=== PATIENT | female | born 1965 | race African-American/Black ===

== ENCOUNTER 2018-07-31 17:21 | Inpatient (IN) | payer OTHER ==
[2018-07-31 19:30] VITALS: BMI 20.6
[2018-07-31] MEDS ORDERED: ALBUTEROL SO4 8 GM HFA INHALER IH SCH (21:00)
--- NOTE | 2018-07-31 21:04 | HP ---
CIWA Score - Admission Criteria [facility]ASAS Guidelines: Admission for Medically Managed Detox: Requires at least one of the followin. CIWA greater than 12 2. Seizures within the past 24 hours 3. Delirium tremens within the past 24 hours 4. Hallucinations within the past 24 hours 5. Acute intervention needed for co occurring medical disorder 6. Acute intervention needed for co occurring psychiatric disorder 7. Severe withdrawal that cannot be handled at a lower level of care (continued vomiting, continued diarrhea, abnormal vital signs) requiring intravenous medication and/or fluids 8. Admission ROS [facility] - HPI Chief Complaint: crack /cocaine rehab Allergies/Adverse Reactions: Allergies Allergy/AdvReac Type Severity Reaction Status Date / Time Fish Containing Products Allergy Intermediate Hives Verified 07/31/18 19:25 History of Present Illness: 53 yo female with hx of nicotine, and crack cocaine dependence is here for rehabilitation, self referred. Denies any legal troubles at this time. PMHX:Asthma, hypothyroid, GERD, seizure (last episode 7-8 months reports on depakote) Psych: reports bipolar and was on Haldol, risperdal for auditory hallucinations , reports not currently taking meds. Denies SI/ HI or hx of suicide attempt longest period of sobriety four years, reports relapse 2 years ago, last rehab completed at [facility] three years ago Exam Limitations: No Limitations - Ebola screening Have you traveled outside of the country in the last 21 days: No (N) Have you had contact with anyone from an Ebola affected area: No Do you have a fever: No - Review of Systems Constitutional: No Symptoms Reported EENT: reports: No Symptoms Reported Respiratory: reports: No Symptoms reported Cardiac: reports: No Symptoms Reported GI: reports: No Symptoms Reported : reports: No Symptoms Reported Musculoskeletal: reports: No Symptoms Reported Integumentary: reports: No Symptoms Reported Neuro: reports: No Symptoms reported Endocrine: reports: No Symptoms Reported Hematology: reports: No Symptoms Reported Psychiatric: reports: Mood/Affect Appropiate, Orientated x3 Other Systems: Reviewed and Negative Patient History - Patient Medical History Hx Anemia: No Hx Asthma: Yes Hx Chronic Obstructive Pulmonary Disease (COPD): No Hx Cancer: No Hx Cardiac Disorders: No Hx Congestive Heart Failure: No Hx Hypertension: No Hx Hypercholesterolemia: No Hx Pacemaker: No HX Cerebrovascular Accident: No Hx Seizures: No Hx Dementia: No Hx Diabetes: No Hx Gastrointestinal Disorders: Yes Hx Liver Disease: No Hx Genitourinary Disorders: No Hx Sexually Transmitted Disorders: No Hx Renal Disease (ESRD): No Hx Thyroid Disease: Yes ( s/o thyroid surgery, rx thyroxine = has not been taking since 08/17) Hx Human Immunodeficiency Virus (HIV): No Hx Hepatitis C: No Hx Depression: Yes Hx Suicide Attempt: No Hx Bipolar Disorder: Yes (medicated : Depacote, sequel, rispedal ) Hx Schizophrenia: No - Patient Surgical History Past Surgical History: Yes Hx Neurologic Surgery: No Hx Cataract Extraction: No Hx Cardiac Surgery: No Hx Lung Surgery: No Hx Breast Surgery: No Hx Breast Biopsy: No Hx Abdominal Surgery: No Hx Appendectomy: No Hx Cholecystectomy: No Hx Genitourinary Surgery: No Hx Section: Yes (X2) Hx Orthopedic Surgery: No Hx Hysterectomy: Yes Other Surgical History: s/p thyroid surgery, HYSTERECTOMY Anesthesia Reaction: No - PPD History Previous Implant?: No Documented Results: Negative w/o proof PPD to be Administered?: Yes - Reproductive History Last Menstrual Period: 03/16/05 (nine years ago ) - Smoking Cessation Smoking history: Current every day smoker Have you smoked in the past 12 months: Yes Aproximately how many cigarettes per day: 20 Hx Chewing Tobacco Use: No Initiated information on smoking cessation: Yes 'Breaking Loose' booklet given: 07/31/18 - Substance & Tx. History Hx Alcohol Use: No Hx Substance Use: Yes Substance Use Type: Cocaine Hx Substance Use Treatment: Yes (Last rehab [facility] three years ago ) - Substances abused Cocaine Substance route: Smoking Frequency: Daily Amount used: 4-5 BAGS Age of first use: 27 Date of last use: 07/30/18 Crack Substance route: Smoking Frequency: Daily Amount used: 2-3 BAGS Age of first use: 27 Date of last use: 07/30/18 Family Disease History - Family Disease History Family Disease History: Diabetes: Mother (alcohol dependence ), Other: Father ( alcohol dependence ), Mother Admission Physical Exam S - Vital Signs Vital Signs: Vital Signs - 24 hr 07/31/18 19:24 Temperature 98.2 F Pulse Rate 81 Respiratory 18 Rate Blood Pressure 147/79 - Physical General Appearance: Yes: Appropriately Dressed, Thin, Anxious HEENTM: Yes: EOMI, Hearing grossly Normal, Normal ENT Inspection, Normocephalic , Normal Voice, DOROTHY, Pharynx Normal, Tm's normal Respiratory: Yes: Chest Non-Tender, Lungs Clear, Normal Breath Sounds, No Respiratory Distress, No Accessory Muscle Use Neck: Yes: Within Normal Limits Breast: Yes: Breast Exam Deferred Cardiology: Yes: Regular Rhythm, Regular Rate Abdominal: Yes: Normal Bowel Sounds, Non Tender, Flat, Soft Genitourinary: Yes: Within Normal Limits Back: Yes: Normal Inspection Musculoskeletal: Yes: full range of Motion, Gait Steady, Pelvis Stable Extremities: Yes: Normal Capillary Refill, Normal Inspection, Normal Range of Motion, Non-Tender Neurological: Yes: hot stick man II-XII NML intact, Fully Oriented, Alert, Motor Strength 5/5, Depressed Affect Integumentary: Yes: Normal Color, Dry, Warm Lymphatic: Yes: Within Normal Limits - Diagnostic (1) Hx of seizure disorder Current Visit: Yes Status: Acute (2) Nicotine dependence Current Visit: Yes Status: Acute Qualifiers: Nicotine product type: cigarettes (3) Asthma Current Visit: Yes Status: Chronic Qualifiers: Asthma severity: mild (4) Cocaine dependence Current Visit: Yes Status: Chronic Qualifiers: Substance use status: uncomplicated Qualified Code(s): F14.20 - Cocaine dependence, uncomplicated (5) Hypothyroid Current Visit: Yes Status: Chronic Qualifiers: Hypothyroidism type: unspecified Qualified Code(s): E03.9 - Hypothyroidism , unspecified Breathalyzer - Breathalyzer Breathalyzer: 0 POC Urine test - Test device test lot number: [id number] Expiration date: 01/02/20 - Result Urine Test Results: Negative - NO line present Urine Drug Screen - Test Device Lot number: [id number] Expiration date: 03/03/20 - Control Is test valid?: Yes - Results Drug screen NEGATIVE: No Urine drug screen results: JERALD-Cocaine Inpatient Rehab Admission - Rehab Decision to Admit Inpatient rehab admission?: Yes - Initial Determination Are CD services needed?: Yes Free of communicable disease: Yes Not in need of hospitalization: Yes - Rehab Admission Criteria Previous failed treatment: Yes Poor recovery environment: Yes Comorbidities: Yes Lacks judgement: Yes Patient is meeting Inpatient Rehab admission criteria:: Yes
[2018-07-31] MEDS ORDERED: IBUPROFEN 400 MG TABLET (FP) PO PRN (21:07)
[2018-07-31] MEDS ORDERED: LOPERAMIDE HCL 2 MG CAPSULE PO PRN (21:07)
[2018-07-31] MEDS ORDERED: MENTHOL/PHENOL 1 EACH UD MM PRN (21:07)
[2018-07-31] MEDS ORDERED: MAGNESIUM HYDROX 2400MG/30ML ORAL SUSPENSION 30 ML CUP PO PRN (21:07)
[2018-07-31] MEDS ORDERED: guaiFENesin 200 MG/10 ML 10 ML UNIT-DOSE CUPS PO PRN (21:07)
[2018-07-31] MEDS ORDERED: MAG HYDROX/AL HYDROX/SIMETH 30 ML UNIT-DOSE CUP PO PRN (21:07)
[2018-07-31] MEDS ORDERED: ACETAMINOPHEN 325 MG TABLET (FP) PO PRN (21:07)
[2018-07-31] MEDS ORDERED: P-EPHED 60MG/TRIPROLIDI 2.5MG TABLET PO PRN (21:07)
[2018-07-31] MEDS ORDERED: MAGNESIUM CITRATE 300 ML BOTTLE PO PRN (21:07)
[2018-07-31] MEDS ORDERED: hydrOXYzine PAMOATE 25 MG CAPSULE (FP) PO PRN (21:07)
[2018-07-31] MEDS ORDERED: NICOTINE POLACRILEX 2 MG GUM BC PRN (21:07)
[2018-07-31] MEDS ORDERED: BUDESONIDE/FORMETEROL FUMARATE 160/4.5 mcg INHALER IH SCH (22:00)
[2018-07-31] MEDS: DIVALPROEX SODIUM 500 MG TABLET E.C. PO SCH (23:07)
[2018-07-31] MEDS: THIAMINE HCL 100 MG TABLET (FP) PO SCH (23:07)
[2018-08-01] MEDS ORDERED: ALBUTEROL SO4 8 GM HFA INHALER IH PRN (00:55)
[2018-08-01 02:24] LABS: EPI CELLS 6.8 /HPF (0-5/HPF); PH,URINE 6.5 (5.0-8.0); URINE APPEARANCE CLOUDY; URINE BACTERIA 3060.6 /hpf (NEGATIVE); URINE BILIRUBIN NEGATIVE (NEGATIVE); URINE CASTS 49 /lpf (0-8); URINE COLOR YELLOW; URINE GLUCOSE (UA) NEGATIVE (NEGATIVE); URINE KETONE TRACE (NEGATIVE); URINE LEUK ESTERASE 2+ (NEGATIVE); URINE NITRITE POSITIVE (NEGATIVE); URINE PROTEIN NEGATIVE (NEGATIVE); URINE RBC 1 /hpf (0-4); URINE WBC 53 /hpf (0-5)
[2018-08-01] MEDS: LEVOTHYROXINE NA 25 MCG TABLET (FP) PO SCH (07:50)
[2018-08-01] MEDS ORDERED: PT OWN MED DRAWER 7, Y5N ONE ×2 (08:30→20:09)
[2018-08-01] MEDS: DIVALPROEX SODIUM 500 MG TABLET E.C. PO SCH ×2 (10:08→22:51)
[2018-08-01] MEDS: BUDESONIDE/FORMETEROL FUMARATE 160/4.5 mcg INHALER IH SCH ×2 (10:09→22:52)
[2018-08-01] MEDS: NICOTINE 14 MG/24 HOURS TOPICAL PATCH TD SCH (10:09)
[2018-08-01] MEDS: PRENATAL VITAMINS W/ FOLIC ACID TABLET (FP) PO SCH (10:09)
[2018-08-01 11:37] LABS: HEMATOCRIT 36.4 % (32.4-45.2); HEMOGLOBIN 11.8 GM/dL (10.7-15.3); MCH 28.6 pg (25.7-33.7); MCHC 32.4 g/dl (32.0-36.0); MEAN CELL VOLUME 88.2 fl (80-96); MEAN PLT VOLUME 9.3 fl (7.5-11.1); PLATELET COUNT 379 K/MM3 (134-434); RBC 4.12 M/mm3 (3.60-5.2); RDW 15.8 % (11.6-15.6); WHITE BLOOD COUNT 7.6 K/mm3 (4.0-10.0)
[2018-08-01 11:49] LABS: ALBUMIN 3.3 g/dl (3.4-5.0); ALK PHOS 116 U/L (45-117); ANION GAP 9 MMOL/L (8-16); BILIRUBIN,TOTAL 0.2 mg/dL (0.2-1); BLOOD UREA NITROGEN 10 mg/dL (7-18); CALCIUM 9.1 mg/dL (8.5-10.1); CHLORIDE 104 mmol/L (98-107); CO2 25 mmol/L (21-32); GLUCOSE,RANDOM 127 mg/dL (74-106); POTASSIUM 3.9 mmol/L (3.5-5.1); SGOT/AST 8 U/L (15-37); SGPT/ALT 13 U/L (13-61); SODIUM 138 mmol/L (136-145); TOT PROT 6.8 g/dl (6.4-8.2)
--- NOTE | 2018-08-01 14:38 | EKG ---
Test Reason : Blood Pressure : / mmHG Vent. Rate : 060 BPM Atrial Rate : 060 BPM P-R Int : 124 ms QRS Dur : 074 ms QT Int : 420 ms P-R-T Axes : 066 064 055 degrees QTc Int : 420 ms NORMAL SINUS RHYTHM LEFT ATRIAL ENLARGEMENT LEFT VENTRICULAR HYPERTROPHY NONSPECIFIC ST AND T WAVE ABNORMALITY ABNORMAL ECG NO PREVIOUS ECGS AVAILABLE Confirmed by MD FARZAD, EVARISTO ([id number]) on 08/01/2018 2:38:40 PM Referred By: Confirmed By:EVARISTO PANDA MD
[2018-08-01] MEDS: THIAMINE HCL 100 MG TABLET (FP) PO SCH (22:52)
[2018-08-01] MEDS: MELATONIN 5 MG TABLETS PO PRN (22:54)
[2018-08-02] MEDS: LEVOTHYROXINE NA 25 MCG TABLET (FP) PO SCH (06:32)
[2018-08-02] MEDS ORDERED: PT OWN MED DRAWER 7, Y5N ONE (08:21)
[2018-08-02] MEDS: PRENATAL VITAMINS W/ FOLIC ACID TABLET (FP) PO SCH (09:52)
[2018-08-02] MEDS: DIVALPROEX SODIUM 500 MG TABLET E.C. PO SCH ×2 (09:52→21:21)
[2018-08-02] MEDS: NICOTINE 14 MG/24 HOURS TOPICAL PATCH TD SCH (09:52)
[2018-08-02] MEDS: BUDESONIDE/FORMETEROL FUMARATE 160/4.5 mcg INHALER IH SCH ×2 (09:53→21:22)
[2018-08-02] MEDS: THIAMINE HCL 100 MG TABLET (FP) PO SCH (21:20)
[2018-08-03] MEDS: LEVOTHYROXINE NA 25 MCG TABLET (FP) PO SCH (06:42)
[2018-08-03] MEDS: BUDESONIDE/FORMETEROL FUMARATE 160/4.5 mcg INHALER IH SCH ×2 (09:37→21:31)
[2018-08-03] MEDS: DIVALPROEX SODIUM 500 MG TABLET E.C. PO SCH ×2 (09:37→21:30)
[2018-08-03] MEDS: PRENATAL VITAMINS W/ FOLIC ACID TABLET (FP) PO SCH (09:37)
[2018-08-03] MEDS: NICOTINE 14 MG/24 HOURS TOPICAL PATCH TD SCH (09:37)
[2018-08-03 11:39] LABS: EPI CELLS 16.1 /HPF (0-5/HPF); PH,URINE 5.5 (5.0-8.0); URINE APPEARANCE CLOUDY; URINE BACTERIA 5217.5 /hpf (NEGATIVE); URINE BILIRUBIN NEGATIVE (NEGATIVE); URINE CASTS 11 /lpf (0-8); URINE COLOR YELLOW; URINE GLUCOSE (UA) NEGATIVE (NEGATIVE); URINE KETONE TRACE (NEGATIVE); URINE LEUK ESTERASE 2+ (NEGATIVE); URINE NITRITE POSITIVE (NEGATIVE); URINE PROTEIN NEGATIVE (NEGATIVE); URINE RBC 3 /hpf (0-4); URINE UROBILINOGEN 0.2 mg/dL (0.2-1.0); URINE WBC 33 /hpf (0-5)
[2018-08-03] MEDS ORDERED: SULFAMETHOXAZOLE/TRIMETHOPRIM 800MG/160MG D.S. TABLET PO SCH (12:00)
[2018-08-03 12:14] LABS: URINE CRYSTALS CALCIUM OXALATE /hpf
[2018-08-03] MEDS: THIAMINE HCL 100 MG TABLET (FP) PO SCH (21:30)
[2018-08-03] MEDS: MELATONIN 5 MG TABLETS PO PRN (21:30)
[2018-08-04] MEDS: LEVOTHYROXINE NA 25 MCG TABLET (FP) PO SCH (06:26)
[2018-08-04 07:05] VITALS: BP 111/70; PULSE 77; TEMP 97.9
[2018-08-04] MEDS ORDERED: PT OWN MED DRAWER 7, Y5N ONE (08:43)
--- NOTE | 2018-08-04 08:50 | PN ---
[facility] Progress Note Note: PT DECLINED TO CONTINUE WITH REHAB FOR PERSONAL REASONS STATING "I DON'T WANNA STAY" WHEN ASKED. PT WAS SEEN THIS MORNING BY HER COUNSELOR, ADRIAN VARGAS. PT MET WITH HER COUNSELOR, ADRIAN VARGAS AND HAS BEEN REFERRED TO [facility] IOP FOR CD AFTERCARE. PT REPORTS SHE HAS A PCP AT [address] [place] [address] FOR MEDICAL MANAGEMENT. PT REPORTS SHE HAS HER MEDS AT HOME. RX FOR BACTRIM DS BELOW ELECTRONICALLY SENT TO [facility] TO COMPLETE EMPERICAL TREATMENT OF UTI. PT DID NOT PROVIDE UC SPECIMEN ORDERED ON . Home Medications Medication Instructions Recorded Divalproex [Depakote -] 500 mg PO BID #60 tablet.ec 10/22/13 Levothyroxine [Synthroid -] 25 mcg PO DAILY 03/05/14 Albuterol Sulfate Inhaler - 1 - 2 inh PO Q4H 07/31/18 [Ventolin HFA Inhaler -] Budesonide/Formeterol Fumarate 1 puff IH QID 07/31/18 [SYMBICORT 160/4.5mcg -] Sulfamethoxazole/Trimethoprim 1 each PO BID #14 tablet 08/04/18 [Bactrim DS -] Vital Signs 08/04/18 08/04/18 03:30 07:04 Temperature 97.9 F Pulse Rate 77 Respiratory 18 18 Rate Blood Pressure 111/70 Laboratory Tests 07/31/18 08/01/18 08/01/18 22:30 08:50 08:50 WBC 7.6 RBC 4.12 Hgb 11.8 Hct 36.4 MCV 88.2 MCH 28.6 MCHC 32.4 RDW 15.8 H Plt Count 379 D MPV 9.3 D Sodium 138 Potassium 3.9 Chloride 104 Carbon Dioxide 25 Anion Gap 9 BUN 10 Creatinine 1.0 Creat Clearance w eGFR 58.22 Random Glucose 127 H Calcium 9.1 Total Bilirubin 0.2 AST 8 L ALT 13 Alkaline Phosphatase 116 Total Protein 6.8 Albumin 3.3 L Urine Color Yellow Urine Appearance Cloudy Urine pH 6.5 D Ur Specific [place] 1.022 Urine Protein Negative Urine Glucose (UA) Negative Urine Ketones Trace H Urine Blood Negative Urine Nitrite Positive H Urine Bilirubin Negative Urine Urobilinogen 1.0 Ur Leukocyte Esterase 2+ H Urine WBC (Auto) 53 Urine RBC (Auto) 1 Urine Casts (Auto) 49 U Pathogenic Cast Auto None seen U Epithel Cells (Auto) 6.8 Urine Crystals (Auto) Urine Bacteria (Auto) 3060.6 Valproic Acid RPR Titer 08/01/18 08/01/18 08/03/18 08:50 08:50 08:15 WBC RBC Hgb Hct MCV MCH MCHC RDW Plt Count MPV Sodium Potassium Chloride Carbon Dioxide Anion Gap BUN Creatinine Creat Clearance w eGFR Random Glucose Calcium Total Bilirubin AST ALT Alkaline Phosphatase Total Protein Albumin Urine Color Yellow Urine Appearance Cloudy Urine pH 5.5 Ur Specific [place] 1.024 Urine Protein Negative Urine Glucose (UA) Negative Urine Ketones Trace H Urine Blood Negative Urine Nitrite Positive H Urine Bilirubin Negative Urine Urobilinogen 0.2 Ur Leukocyte Esterase 2+ H Urine WBC (Auto) 33 Urine RBC (Auto) 3 Urine Casts (Auto) 11 U Pathogenic Cast Auto U Epithel Cells (Auto) 16.1 Urine Crystals (Auto) Calcium oxalate Urine Bacteria (Auto) 5217.5 Valproic Acid 66.9 RPR Titer Nonreactive NAD PLAN:FOLLOW UP AT [facility] FOR CD AFTERCARE FOLLOW UP WITH PCP ABOVE WITHIN 1 WEEK AFTER DISCHARGE. PT INSTRUCTED TO TAKE COPY OF LAB PROVIDED/RX GIVEN ON DISCHARGE TO PCP FOR FOLLOW UP OF UTI TREATMENT VERITO.
== END 2018-08-04 09:00 | disposition left against medical advice (07) | DRG 770 ==
LOC: YASAS 17:21 → Y3E 21:37
PROVIDERS: ADMIT Neuromusculoskeletal Medicine & OMM; ATTEND Neuromusculoskeletal Medicine & OMM
PROC: HZ42ZZZ Group Counseling for Substance Abuse Treatment, Cognitive-Behavioral (ICD-10-PCS; principal; 2018-07-31)
DX: F14.20 Cocaine dependence, uncomplicated (principal); F17.210 Nicotine dependence, cigarettes, uncomplicated; N39.0 Urinary tract infection, site not specified; J45.909 Unspecified asthma, uncomplicated; K21.9 Gastro-esophageal reflux disease without esophagitis; E89.0 Postprocedural hypothyroidism; Z86.69 Personal history of other diseases of the nervous system and sense organs; Z98.890 Other specified postprocedural states; Z91.013 Allergy to seafood
CPT/HCPCS: 36415; 80053; 80164; 81003; 85027; 86593; 93005; 93010